=== PATIENT | female | born 1940 | race Asian ===

== ENCOUNTER 2021-11-25 02:57 | Inpatient (IN) | payer OTHER, MEDICAID ==
[~2021-11-25] VITALS: Ht 154.9 cm; Wt 83.9 kg
[2021-11-25] MEDS ORDERED: ONDANSETRON HCL 4MG/2ML INJ IV STA (03:03)
[2021-11-25] MEDS ORDERED: NITROGLYCERIN OINT 1GM/INCH UDPKT TD ONE (03:15)
[2021-11-25] MEDS ORDERED: FUROSEMIDE 40MG/4ML VIAL IV ONE (03:15)
[2021-11-25] MEDS: METOPROLOL TARTRATE 5MG/5ML VIAL IV SCH ×3 (03:32→06:15)
[2021-11-25 03:47] LABS: BASOPHILS % 0.3 % (0.0-2.0); EOSINOPHILS % 0.7 % (0.0-5.0); HEMATOCRIT. 25.7 % (36.0-48.0); HEMOGLOBIN. 7.5 g/dL (12.0-16.0); LYMPHOCYTES % 37.8 % (20.0-50.0); MEAN CORPUSCULAR HEMOGLOBIN 21.5 pg (28.0-32.0); MEAN CORPUSCULAR VOLUME 73.7 fL (81.0-99.0); MEAN PLATELET VOLUME 8.7 fl (7.4-10.4); MONOCYTES % 7.3 % (2.0-8.0); NEUTROPHILS % 53.9 % (40.0-76.0); PLATELET 346 x1000/uL (130-400); RED BLOOD CELL COUNT 3.49 mill/uL (4.2-5.4); RED CELL DISTRIBUTION WIDTH 18.4 % (11.6-14.6)
[2021-11-25 04:05] LABS: CHLORIDE 107 mEq/L (98-107)
[2021-11-25 04:25] LABS: BG BASE EXCESS -5.7 mmol/L (-2.0-2.0); BG CARBOXYHEMOGLOBIN 0.9 % (0.5-1.5); BG DEOXYHEMOGLOBIN 1.3 % (0.0-5.0); BG FRACTION INSPIRED OXYGEN 50; BG HCO3 ACT 20.3 mmol/L (22.0-26.0); BG METHEMOGLOBIN 0.1 % (0.0-1.5); BG OXYGEN SATURATION 98.7 % (92.0-98.5); BG OXYHEMOGLOBIN 97.7 % (94.0-97.0); BG PCO2 41.9 mmHg (35.0-45.0); BG PH 7.303 (7.350-7.450); BG SAMPLE SITE RIGHT RADIAL; BG TOTAL HEMOGLOBIN 8.5 g/dL (12.0-18.0); BG TOTAL RESPIRATORY RATE 18 b/min; BG VENT MODE MASK - BIPAP
[2021-11-25] MEDS ORDERED: ONDANSETRON HCL 4MG/2ML INJ IV PRN (05:00)
[2021-11-25] MEDS ORDERED: MAGNESIUM/ALUMINUM HYDROXIDE/SIMETHICONE 30ML UDC PO PRN (05:00)
[2021-11-25] MEDS ORDERED: DOCUSATE SODIUM 100MG CAPSULE PO PRN (05:00)
[2021-11-25] MEDS ORDERED: CLONIDINE 0.1MG TABLET PO PRN (05:00)
[2021-11-25] MEDS ORDERED: ACETAMINOPHEN 325MG TABLET PO PRN ×2 (05:00)
[2021-11-25] MEDS ORDERED: IPRATROPIUM/ALBUTEROL 0.5-3(2.5)MG/3ML NEB HHN PRN (05:00)
[2021-11-25] MEDS ORDERED: ACETAMINOPHEN 650MG SUPP PR PRN ×2 (05:00)
[2021-11-25] MEDS ORDERED: DEXTROSE 50% WATER 50ML SYRINGE IV PRN (05:15)
[2021-11-25 06:51] LABS: BETA HYDROXYBUTYRATE 0.2 mMol/L (0.0-0.3)
[2021-11-25] MEDS: BLOOD SUGAR DIAGNOSTIC STRIP TEST SCH ×4 (09:00→21:00)
[2021-11-25] MEDS ORDERED: ENOXAPARIN 30MG/0.3ML SYR SUBCUT SCH (09:00)
[2021-11-25 11:06] LABS: CREATINE KINASE MB FRACTION 1.3 ng/mL (0.5-3.6)
[2021-11-25] MEDS: INSULIN LISPRO 100 UNITS/ML SUBCUT SCH ×4 (12:40→21:00)
[2021-11-25] MEDS ORDERED: METOPROLOL TARTRATE 25MG TABLET PO SCH (14:00)
[2021-11-25] MEDS ORDERED: METOPROLOL TARTRATE 25MG TABLET PO NR (14:04)
[2021-11-25 16:00] VITALS: BP 155/88
[2021-11-25] MEDS: FUROSEMIDE 40MG/4ML VIAL IVP SCH (19:47)
[2021-11-25 20:00] VITALS: BP 128/85
[2021-11-25 20:19] VITALS: BP 158/77
[2021-11-25] MEDS: IPRATROPIUM BROMIDE (0.02%) 0.5MG/2.5ML NEB HHN SCH (21:30)
[2021-11-25] MEDS: METOPROLOL TARTRATE 25MG TABLET PO SCH (21:32)
[2021-11-26] VITALS (11 sets, daily range): BP systolic 110–147; BP diastolic 51–97
[2021-11-26] MEDS: IPRATROPIUM BROMIDE (0.02%) 0.5MG/2.5ML NEB HHN SCH ×4 (03:05→20:57)
[2021-11-26] MEDS: BLOOD SUGAR DIAGNOSTIC STRIP TEST SCH ×4 (06:20→17:33)
[2021-11-26] MEDS: FUROSEMIDE 40MG/4ML VIAL IVP SCH ×2 (06:22→16:57)
[2021-11-26] MEDS: INSULIN LISPRO 100 UNITS/ML SUBCUT SCH ×4 (06:24→22:23)
[2021-11-26 07:13] LABS: CHLORIDE 106 mEq/L (98-107)
[2021-11-26 07:24] LABS: CREATINE KINASE 110 IU/L (26-192)
[2021-11-26] MEDS: METOPROLOL TARTRATE 25MG TABLET PO SCH ×2 (08:09→22:21)
[2021-11-26 08:12] LABS: MEAN CORPUSCULAR HEMOGLOBIN 21.2 pg (28.0-32.0); MEAN CORPUSCULAR VOLUME 68.3 fL (81.0-99.0); MEAN PLATELET VOLUME 8.7 fl (7.4-10.4); PLATELET 281 x1000/uL (130-400); RED BLOOD CELL COUNT 3.29 mill/uL (4.2-5.4); RED CELL DISTRIBUTION WIDTH 18.2 % (11.6-14.6)
[2021-11-26 08:45] LABS: HEMATOCRIT. 22.5 % (36.0-48.0)
[2021-11-26] MEDS ORDERED: FUROSEMIDE 40MG/4ML VIAL IVP SCH (09:00)
[2021-11-26] MEDS ORDERED: AMIODARONE HCL 200 MG TABLET PO SCH (13:15)
[2021-11-26 15:51] LABS: PLATELET ESTIMATE NORMAL
[2021-11-26 20:50] LABS: HEMATOCRIT 26.6 % (36.0-48.0); HEMOGLOBIN 8.3 g/dL (12.0-16.0)
[2021-11-26 21:01] LABS: PROTHROMBIN TIME 11.1 sec (9.6-11.0)
== END 2021-11-27 01:04 | disposition short-term general hospital (02) | DRG 189 ==
LOC: ER 02:57 → MICUSO 04:15 → EDBEDREQSVC 10:12 → 8WST 12:18
PROVIDERS: ADMIT Family Medicine Adult Medicine; ATTEND Family Medicine Adult Medicine
PROC: 5A09357 Assistance with Respiratory Ventilation, Less than 24 Consecutive Hours, Continuous Positive Airway Pressure (ICD-10-PCS; 2021-11-25)
PROC: 30233N1 Transfusion of Nonautologous Red Blood Cells into Peripheral Vein, Percutaneous Approach (ICD-10-PCS; principal; 2021-11-26)
DX: J96.01 Acute respiratory failure with hypoxia (principal); I50.41 Acute combined systolic (congestive) and diastolic (congestive) heart failure; E44.0 Moderate protein-calorie malnutrition; J84.9 Interstitial pulmonary disease, unspecified; N17.9 Acute kidney failure, unspecified; J81.1 Chronic pulmonary edema; I11.0 Hypertensive heart disease with heart failure; I16.0 Hypertensive urgency; E11.65 Type 2 diabetes mellitus with hyperglycemia; I48.0 Paroxysmal atrial fibrillation; D64.9 Anemia, unspecified; R79.89 Other specified abnormal findings of blood chemistry; E78.5 Hyperlipidemia, unspecified; Z20.822 Contact with and (suspected) exposure to COVID-19; R74.01 Elevation of levels of liver transaminase levels; E11.21 Type 2 diabetes mellitus with diabetic nephropathy; N93.9 Abnormal uterine and vaginal bleeding, unspecified; Z79.4 Long term (current) use of insulin; Z86.73 Personal history of transient ischemic attack (TIA), and cerebral infarction without residual deficits; Z88.8 Allergy status to other drugs, medicaments and biological substances; Z91.041 Radiographic dye allergy status; Z68.35 Body mass index [BMI] 35.0-35.9, adult
CPT/HCPCS: 36415; 36600; 71045; 76700; 76856; 78582; 80053; 80061; 82010; 82375; 82550; 82553; 82805; 82962; 83036; 83605; 83735; 83880; 84145; 84443; 84484; 85014; 85018; 85025; 85049; 85379; 85384; 86850; 86900; 86920; 87426; 93005; 93306; 93970; 94640; 94660; 99291; A9558; J1650; J1815; J1940; J2405; J3490; J7040; P9016